=== PATIENT | female | born 1960 | race Caucasian/White ===

== ENCOUNTER 2024-06-19 08:20 | Outpatient (CLI) | payer BC | END 2024-06-19 08:21 | disposition home or self-care (01) | LOC: CSHSLEEP 08:20 | PROVIDERS: ATTEND Family Medicine | DX: G47.33 Obstructive sleep apnea (adult) (pediatric) (principal); G47.10 Hypersomnia, unspecified; R53.83 Other fatigue; R06.83 Snoring; G47.00 Insomnia, unspecified; G47.61 Periodic limb movement disorder | CPT/HCPCS: 95810 ==